=== PATIENT | female | born 1990 | race Asian ===

== ENCOUNTER 2016-10-20 04:30 | Emergency (ER) | payer SELFPAY ==
[~2016-10-20] VITALS: Ht 165.1 cm; Wt 63.1 kg
[2016-10-20] MEDS ORDERED: SODIUM CHLORIDE FLUSH 10ML SYR IVF ONE (05:30)
[2016-10-20] MEDS ORDERED: MORPHINE SULFATE 4 MG/ML, 1ML IVPush PRN (05:30)
[2016-10-20] MEDS ORDERED: ONDANSETRON 2MG/ML, 2ML IVPush ONE (05:30)
[2016-10-20] MEDS ORDERED: FAMOTIDINE 20 MG/2 ML IVP ONE (05:30)
[2016-10-20] MEDS ORDERED: SODIUM CHLORIDE 0.9% 1,000ML IVBOLUS ONE (05:30)
[2016-10-20] MEDS ORDERED: FAMOTIDINE 20 MG/2 ML ONE (05:48)
[2016-10-20] MEDS ORDERED: ONDANSETRON 2MG/ML, 2ML ONE (05:48)
[2016-10-20] MEDS ORDERED: MORPHINE SULFATE 4 MG/ML, 1ML ONE (05:48)
[2016-10-20 06:04] LABS: ASPARTATE AMINO TRANSFERASE 11 U/L (15-37); BLOOD UREA NITROGEN 12 mg/dL (7-18)
[2016-10-20] MEDS ORDERED: CEFOTETAN PMX 2GM/50ML 50 ML IV ONE (09:00)
[2016-10-20] MEDS ORDERED: SODIUM CHLORIDE 0.9%, 500ML IVBOLUS ONE (09:00)
[2016-10-20 12:24] VITALS: BP 121/76
== END 2016-10-20 12:28 | disposition left against medical advice (07) ==
LOC: ED 05:58 → UNDOADMIN 08:50 → EDIP 08:50 → ED 12:28
DX: K80.43 Calculus of bile duct with acute cholecystitis with obstruction (principal); D72.829 Elevated white blood cell count, unspecified; R00.0 Tachycardia, unspecified; K50.90 Crohn's disease, unspecified, without complications
CPT/HCPCS: 36415; 76700; 80053; 83690; 84703; 85025; 96361; 96374; 96375; 99285; J2405; J7030; S0028